=== PATIENT | male | born 1980 | race Caucasian/White ===

== ENCOUNTER 2017-01-20 17:19 | Inpatient (IN) ==
[2017-01-20] MEDS ORDERED: *HR* Morphine 2 MG/ML SYRINGE IVP PRN (19:33)
[2017-01-20] MEDS ORDERED: *HR* HYDROmorphone 2 MG/ML SYRINGE IM PRN (21:56)
--- NOTE | 2017-01-20 23:21 | Internal Med History&Physical ---
<Octavio Vela - Last Filed: 01/21/17 00:25> Date of Encounter: 01/21/17 Time of Encounter: 21:00 Assessment and Plan (1) Abdominal pain Current visit: Yes Status: Acute Patient has right upper quadrant abdominal pain, possibly due to biliary obstruction. -Pain unrelated to the consumption of food. -Surgery has been consulted. -NPO after midnight in preparation for procedure. -HIDA scan in the morning. -Dilaudid for pain control. Qualifiers: Qualified Code(s): R10.11 - Right upper quadrant pain (2) Pancreatitis Current visit: Yes Status: Acute Patient has a known history of pancreatitis. -Patient states that he has been treated previously treated with pancreatitis, and that he had an elevated lipase during these episodes. -Patient denies drinking alcohol for the last 3 months. -Patient does note however that his pain is somewhat different from when he had pancreatitis. -Surgical consult. -Nothing by mouth after midnight. HIDA scan in the morning. Dilaudid for pain control. Qualifiers: Qualified Code(s): K85.90 - Acute pancreatitis without necrosis or infection , unspecified (3) Back pain Current visit: Yes Status: Acute Patient states that he takes Lyrica for back pain secondary to an injury he received in combat. Qualifiers: Qualified Code(s): M54.9 - Dorsalgia, unspecified Internal Medicine - H&P: HPI History of present illness: Mr. Yañez is a 36 year old male with a past medical history of PTSD, pancreatitis, and hepatitis who was seen and examined at bedside this evening. Patient states that he has had increasing abdominal pain in his right upper quadrant over the last 3 months, although his pain has increased in severity over the last 3 weeks. This patient is a transfer from the [facility]. He states that this abdominal pain is sharp in quality, constant, nonradiating, rated 10/10. Nothing seems to make the pain better or worse. Patient had previously been treated with Dilaudid, although he notes that it was not very effective. Pain seems to be unrelated to the consumption of food. He denies ever having a pain like this before. Patient notes that over the last several days he has been treated for pancreatitis. His condition however, has not improved. Patient notes that he has had issues in the past with his pancreas, although he has never experienced pain like this before. He denies current use of alcohol; he states that he has not had any alcohol for the last 3 months. He currently denies fever, chills, nausea, vomiting, diarrhea, or changes in bowel habits. Past Med Surg Social Fam HX - Past Medical History Medical history: diabetes, GERD, hepatitis Psychiatric history: no psych history - Past Surgical History Surgical History: no surgical history - Social History Smoking Status: Never smoker Smokeless Tobacco Status: Yes Alcohol use: none Drug use: none - Family History Mother Living Status: Still Living Father Living Status: Still Living Internal Medicine - H&P: Meds 3 Allergy/AdvReac Type Severity Reaction Status Date / Time No Known Allergies Allergy Verified 01/19/17 11:13 All Systems PM: A 10-system review of systems was performed and is negative for pertinent findings except as documented above in the HPI. - Constitutional Constitutional: no anorexia, no chills, no fatigue, no weakness - Cardiovascular Cardiovascular ROS IM: no chest pain, no diaphoresis, no dyspnea, no lightheadedness, no palpitations, no syncope - Respiratory Respiratory: no cough, no dyspnea, no wheezing, no excessive phlegm production - Gastrointestinal Gastrointestinal: abdominal pain, change in bowel habits, no bloating, no coffee ground emesis, no diarrhea, no heartburn, no vomiting - Constitutional Vitals: Temp Pulse Resp BP Pulse Ox 98.4 F 97 14 131/92 98 01/20/17 19:30 01/20/17 19:30 01/20/17 19:30 01/20/17 19:30 01/20/17 19:30 - Head Head exam: Present: atraumatic, normocephalic - Neck Neck exam general surgery: Present: supple, trachea midline. Absent: lymphadenopathy - Respiratory Respiratory exam: Present: CTAB. Absent: accessory muscle use, rales, rhonchi, wheezes - Cardiovascular Cardiovascular exam: Present: RRR, +S1, +S2. Absent: diastolic murmur, gallop, rubs, systolic murmur - GI/Abdominal GI/Abdominal exam: Present: normal bowel sounds, soft, tenderness. Absent: distended, guarding Additional comments: Pain primarily located in the right upper quadrant. Patient also has some pain in the left upper quadrant. Pain is worse with palpation. - Extremities Exam Extremities exam: Present: warm, radial pulses palpable and symmetrical - Skin Skin exam: Present: dry, intact <Daysi Everett - Last Filed: 01/21/17 03:29> Date of Encounter: 01/21/17 Internal Medicine - H&P: HPI History of present illness: Mr. Yañez is a 36 year old male All Systems PM: A 10-system review of systems was performed and is negative for pertinent findings except as documented above in the HPI. - Constitutional Vitals: Temp Pulse Resp BP Pulse Ox 97.9 F 98 14 119/74 95 01/21/17 00:50 01/21/17 00:50 01/21/17 00:50 01/21/17 00:50 01/21/17 00:50 - Attending Attestation I have personally performed a face to face evaluation on this patient and I discussed the assessment and plan with the resident. I have reviewed and agree with the documented care plan. History and Exam by me shows: This is a 36 y/o M with known h/o narcotic dependence, drug seeking behavior, chronic pancreatitis, chronic Hep C who was admitted into the [facility] for intractable abdominal pain. He was there for almost 3 months, with no IV access and getting IM Dilaudid every 4hrs. Now he was sent over here for further evaluation regarding his RUQ abdominal pain. Gen: A, A, O x3 Chest: CTA, No Wheezing/ no crackles Abd: pt is exhibiting lot of pain in RUQ, but overall abdomen soft, no guarding / no rigidity Heart: S1 S2 + RRR, No murmurs a/p 1. Acute intractable RUQ abdominal pain Keep him NPO after mid night will get HIDA scan in AM Also will consult surgery in AM 2. Chronic pancreatitis will check LFT's and Lipase in AM 3. Chronic hep C f/u with PCP as an out pt
[2017-01-21] MEDS: Nicotine 2 MG GUM BC PRN ×4 (01:46→21:50)
[2017-01-21] MEDS: *HR* HYDROmorphone 4 MG TABLET PO PRN ×4 (01:47→23:08)
[2017-01-21] MEDS ORDERED: Ketorolac 15 MG/ML VIAL IM ONE (03:00)
[2017-01-21] MEDS ORDERED: *HR* Promethazine 25 MG/ML VIAL IM ONE (03:01)
[2017-01-21] MEDS ORDERED: *HR* HYDROmorphone 2 MG/ML SYRINGE IM ONE (03:25)
[2017-01-21 08:35] LABS: Basophils % 0.4 %; Eosinophils % 0.1 %; Hematocrit 42.3 % (37.5-50.1); Immature Granulocytes % 0.3 % (0-4); Lymphocytes # 2.1 K/mcL (0.6-4.6); Lymphocytes % 19.7 %; Mean Corpuscular HGB Conc 33.1 g/dL (31.6-35.5); Mean Corpuscular Hemoglobin 28.6 pg (28.0-33.3); Mean Corpuscular Volume 86.5 fL (83.0-100.0); Mean Platelet Volume 9.2 fL (9.4-12.4); Monocytes # 0.8 K/mcL (0.0-1.3); Monocytes % 7.4 %; Neutrophils # 7.7 K/mcL (1.6-8.9); Platelet Count 303 K/mcL (140-400); Red Blood Count 4.89 M/mcL (4.19-5.50); Red Cell Distribution Width 13.8 % (11.5-14.5); Segmented Neutrophils % 72.1 %
[2017-01-21 08:38] LABS: INR 1.2; Prothrombin Time 12.6 Seconds (9.4-12.1)
[2017-01-21 08:49] LABS: Alanine Aminotransferase 113 Units/L (0-55); Albumin 3.7 g/dL (3.5-5.0); Alkaline Phosphatase 84 Units/L (38-126); Aspartate Amino Transferase 144 Units/L (5-34); BUN/Creatinine Ratio 17 (6-26); Blood Urea Nitrogen 18 mg/dL (8-26); Calcium 9.3 mg/dL (8.6-10.8); Carbon Dioxide 26 mEq/L (19-29); Chloride 102 mEq/L (98-109); Globulin 3.7 g/dL (2.4-3.5); Glucose 121 mg/dL (70-99); Lipase 195 Units/L (8-78); Magnesium 2.1 mg/dL (1.6-2.6); Osmolality,Calculated 283 (280-300); Potassium 3.6 mEq/L (3.5-4.5); Sodium 135 mEq/L (136-145); Total Protein 7.4 g/dL (6.0-8.3); eGFR For African Americans > 60 (> 60); eGFR For Non-African Americans > 60 (> 60)
--- NOTE | 2017-01-21 09:12 | Internal Med Progress Note ---
<IanedithReyna florence - Last Filed: 01/21/17 16:00> Date of Encounter: 01/21/17 Time of Encounter: 09:12 - Assessment and plan (1) Abdominal pain Current Visit: Yes Status: Acute Assessment and plan: Patient with right upper quadrant pain. He has a nonacute exam. Patient has been drug-seeking during this admission. The examination needed to properly incompletely evaluate his gallbladder would be a HIDA scan. We have discussed this with patient and he agrees to the test. -Follow-up results of HIDA scan. -Follow surgery recommendations. Keep patient nothing by mouth while awaiting their recommendations. -Judicious pain control, and anti-emetics. Qualifiers: Abdominal location: right upper quadrant Qualified Code(s): R10.11 - Right upper quadrant pain (2) Pancreatitis Current Visit: Yes Status: Chronic Assessment and plan: Patient's lipase is 195. -Awaiting results of HIDA scan. Patient is recovering from an ERCP on Thursday, this elevation in enzymes could be secondary to examination. -Continue judicious pain control and Phenergan Qualifiers: Chronicity: chronic Pancreatitis type: unspecified pancreatitis type Qualified Code(s): K86.1 - Other chronic pancreatitis (3) Aggressive behavior Current Visit: Yes Status: Chronic - Subjective Interval history: Mr. Yañez is a 36-year-old male past medical history of diabetes mellitus, PTSD , chronic pancreatitis, hepatitis, and polysubstance abuse. Presents to [facility] on 01[facility]2017 as a transfer [facility] the [facility]. He was transferred for right upper quadrant pain. Prior to transfer, he had a CT scan and a gallbladder ultrasound which showed no abnormalities. His hospital course has been complicated by a aggressive behavior including inability to cooperate for the needed HIDA scan this morning. Patient was demanding pain medication. This morning, upon presentation to the room, patient was resting comfortably. Upon further questioning, patient stated he could not cooperate for the exam as he is in excruciating pain. He describes his pain as constant and located in the upper portions of his abdomen. He has not had a bowel movement recently, and teeth denies any melena or hematochezia. He denies any diarrhea, nausea, or vomiting. Denies any fevers or chills, headache, dizziness , chest pain, shortness of breath, or weakness. Patient has never had surgery. Upon review of the plan with the patient, she agreed that he would hold his pain medications until HIDA scan. - Constitutional Vitals: Temp Pulse Resp BP Pulse Ox 97.7 F 78 16 126/70 96 01/21/17 07:30 01/21/17 07:30 01/21/17 07:30 01/21/17 07:30 01/21/17 07:30 General appearance: Present: mild distress, A&O X 3, answers questions appropriately - Respiratory Respiratory exam: Present: CTAB. Absent: accessory muscle use, rales, rhonchi, wheezes - Cardiovascular Cardiovascular exam: Present: RRR, +S1, +S2. Absent: diastolic murmur, gallop, rubs, systolic murmur - GI/Abdominal GI/Abdominal exam: Present: soft, tenderness (Mild bilateral upper abdominal pain). Absent: distended, firm, guarding, pulsatile mass, rebound, no peritoneal signs - Extremities Exam Extremities exam: Present: warm, radial pulses palpable and symmetrical. Absent : calf tenderness, cyanotic, pedal edema - Psychiatric Psychiatric exam: Present: agitated Internal Medicine: Result - Labs CBC & Chem 7: 01/21/17 08:25 01/21/17 08:25 Labs: Short CBC 01/21/17 Range/Units 08:25 WBC 10.7 (4.3-11.1) K/mcL Hgb 14.0 (12.9-16.9) g/dL Hct 42.3 (37.5-50.1) % Plt Count 303 (140-400) K/mcL Neutrophils # 7.7 (1.6-8.9) K/mcL BMP 01/21/17 08:25 Sodium 135 L Potassium 3.6 Chloride 102 Carbon Dioxide 26 BUN 18 Creatinine 1.08 Glucose 121 H Calcium 9.3 Liver Function 01/21/17 Range/Units 08:25 Total Bilirubin 2.0 H (0.2-1.2) mg/dL AST 144 H (5-34) Units/L ALT 113 H (0-55) Units/L Alkaline Phosphatase 84 (38-126) Units/L Albumin 3.7 (3.5-5.0) g/dL - ABG Interpretation ABG results: PT/INR, D-dimer PT 12.6 Seconds (9.4-12.1) H 01/21/17 08:25 Consult Discharge Plan - Plan [facility] Provider[facility] - <Dru Buckner T - Last Filed: 01/21/17 16:25> Date of Encounter: 01/21/17 - Constitutional Vitals: Temp Pulse Resp BP Pulse Ox 97.8 F 104 15 144/96 99 01/21/17 15:39 01/21/17 15:39 01/21/17 15:39 01/21/17 15:39 01/21/17 15:39 Internal Medicine: Result - Labs CBC & Chem 7: 01/21/17 08:25 01/21/17 08:25 Labs: Short CBC 01/21/17 Range/Units 08:25 WBC 10.7 (4.3-11.1) K/mcL Hgb 14.0 (12.9-16.9) g/dL Hct 42.3 (37.5-50.1) % Plt Count 303 (140-400) K/mcL Neutrophils # 7.7 (1.6-8.9) K/mcL BMP 01/21/17 08:25 Sodium 135 L Potassium 3.6 Chloride 102 Carbon Dioxide 26 BUN 18 Creatinine 1.08 Glucose 121 H Calcium 9.3 Liver Function 01/21/17 Range/Units 08:25 Total Bilirubin 2.0 H (0.2-1.2) mg/dL AST 144 H (5-34) Units/L ALT 113 H (0-55) Units/L Alkaline Phosphatase 84 (38-126) Units/L Albumin 3.7 (3.5-5.0) g/dL - ABG Interpretation ABG results: PT/INR, D-dimer PT 12.6 Seconds (9.4-12.1) H 01/21/17 08:25 - Impressions Impressions Bile Acid Absorption NM 01/21/17 06:36 IMPRESSION: Nondiagnostic examination as described. RECOMMENDATIONS: Consider gallbladder ultrasound for further assessment as clinically warranted. D/ / Roque Mccloud MD / Roque Mccloud MD Interpreting Provider: Roque Mccloud MD - Attending Attestation I independently saw and examined this patient on 01/21/2017, I have reviewed his chart as well. Diagnoses and management plan was discussed with the patient, and the resident physician. This is a 36 YOM with hx of chronic pancreatitis, chronic hepatitis, recent treatment for Latent TB, hepatosteeasosis, hypothyroidism. Patient was admitted [facility] for abdominal pain. At the time of review, there is no acute reason for his acute abdomen. [facility] and [facility] here show his chronic hepatitis/pancreatitis. He had also refused to co-operative. For his HIDA scan. OARSS is unremarkable for history of drug abuse. [facility] Physical exam is unremarkable A/P: Abdominal pain: Surgery has signed off, limit use of opiates, clear liquid diet, monitor closely. Rpt LFTs a.m Rest of details as in resident physicians documentation
--- NOTE | 2017-01-21 11:16 | General Surgery Consult Note ---
Addendum entered and electronically signed by Lizz Waller CNP 01/21/17 15: 00: CT and Ultrasound results (per hard chart), which are not concerning for acute gall bladder process, reviewed with Dr. Mccormick. Pt was unable to complete Hida scan d/t "extreme back pain." No clear indication for surgical intervention at this time. surgery will sign off. Please reconsult if needs or concerns arise. Original Note: <Lizz Waller - Last Filed: 01/21/17 13:58> Date of Encounter: 01/21/17 Time of Encounter: 11:15 Assessment and Plan (1) Abdominal pain Current Visit: Yes Status: Acute His abdominal exam is nonacute. He does report tenderness with moderate palpation. Radiology results reviewed (see HPI). Patient has not had any IV pain medication or narcotics for greater than 6 hours. He does become aggressive when we discuss the Hida scan stating "change to this tomorrow I want pain medication because that is all that's helping and I am getting pissed. " Discussed further with patient that he is prepped for the exam today and this is the scan that surgery requires to properly evaluate his abdominal discomfort in light of his normal US and CT recently. Reviewed with patient that the same process would need to be followed tomorrow, and we do not recommend waiting for this exam. He does become slightly more aggressive, but does agree to complete Hida scan today. IF Hida is normal, the etiology of his abdominal discomfort is likely r/t chronic pancreatitis and/or chronic Hep C. Continue NPO at this time Further recommendations pending Hida scan The above plan presented by this CHIEF QUALITY OFFICER and Althea Nazario CNP,and is reviewed with the patient and he is agreeable to proceed. Qualifiers: Abdominal location: right upper quadrant Qualified Code(s): R10.11 - Right upper quadrant pain (2) Aggressive behavior Current Visit: Yes Status: Chronic See above. (3) Pancreatitis Current Visit: Yes Status: Chronic See above Lipase 195 Qualifiers: Chronicity: chronic Pancreatitis type: unspecified pancreatitis type Qualified Code(s): K86.1 - Other chronic pancreatitis History of Present Illness Consult date: 01/20/17 (Dr. Paul Mccormick) Reason for consult: abdominal pain Requesting physician: Octavio Vela History of present illness: Lawrence is a 36 year old male who presented for RUQ pain. Lawrence has a past medical history of chronic hepatitis C status post treatment with Harvoni , chronic pancreatitis, EtOH abuse, obstructive sleep apnea with intolerance to CPAP, hypothyroidism, PTSD, nicotine dependence, opiate abuse, and traumatic brain injury. He had been evaluated at the [place] and CT scan on 01/14/2017 indicated constipation and no mention of gall bladder abnormality, RUQ ultrasound on 01/15/2017 showed no gall bladder abnormality, and he was transferred to [facility]. An ERCP on 01/20/2017 (Dr. Chaudhry) was unremarkable. We have been asked to evaluate the patient for consideration gallbladder etiology. Lawrence reports history of right upper quadrant pain and epigastric pain for the last 4 months. He states that any intake by mouth makes this worse. He denies any alleviating factors other than pain medication. Per record review he had no IV access at the [place] and was receiving dilaudid injections every 4 hours. He reports constipation. He denies black, bloody, or tarry stool. He denies diarrhea. He endorses intermittent episodes of nausea that accompany the abdominal pain. He denies fevers or chills, headache, dizziness, chest pain , shortness of breath, or weakness. He denies a surgical history. He endorses a chewing tobacco history. His hospital course has included unremarkable CBC, BMP and LFTs consistent with chronic pancreatitis. Lawrence reports that he is getting "very angry," and want something "done now." Per bedside RN ILAN had been ordered by hospitalist, but patient refused unless he was given pain medication. Pain medication has been held for greater than 6 hours in preparation for the scan. Past Med Surg Social Fam HX - Past Medical History Source: patient, old records reviewed Medical history: diabetes, GERD, hepatitis, liver disease (Chronic hepatitis C; treated with Harvoni), other (TBI, ETOH abuse, ASHLEY, hypothyroid, ) Psychiatric history: anxiety, depression, PTSD, other - Past Surgical History Surgical History: no surgical history - Social History Smoking Status: Never smoker Smokeless Tobacco Status: Yes Alcohol use: none Drug use: none Occupational status: other Current living situation: Other Activity Level: Independent ambulation Recent Out of Country Travel Within the Last 8 Weeks: No Exposure or Possible Exposure to Illness During Travel: No - Family History Mother Living Status: Still Living Father Living Status: Still Living Medications and Allergies Acamprosate Calcium 666 mg PO TID 01/21/17 [History] Finasteride [Proscar] 5 mg PO DAILY 01/21/17 [History] Folic Acid 1 mg PO DAILY 01/21/17 [History] Ibuprofen [Motrin] 600 mg PO Q8H PRN 01/21/17 [History] Levothyroxine Sodium [Levoxyl] 37.5 mcg PO QAM 01/21/17 [History] Lipase/Protease/Amylase [Creon Dr 24,000 Units Capsule] 1 cap PO TIDWM 01/21/17 [History] Magnesium Oxide [Magnesium] 400 mg PO BID 01/21/17 [History] Mirtazapine [Remeron] 15 mg PO HS 01/21/17 [History] Multivit-Min/FA/Lycopen/Lutein [A Thru Z Select Multivit Tab] 1 tab PO DAILY 08/04 [History] Nicotine Polacrilex [Nicotine Lozenge] 4 mg BC Q2H PRN 01/21/17 [History] Omeprazole [PriLOSEC] 20 mg PO DAILY 01/21/17 [History] Potassium Chloride [K-Tab ER] 20 meq PO DAILY 01/21/17 [History] Thiamine (B-1) [Vitamin B-1] 100 mg PO DAILY 01/21/17 [History] hydrOXYzine HCl [Hydroxyzine HCl] 25 mg PO TID 01/21/17 [History] 3 Allergy/AdvReac Type Severity Reaction Status Date / Time No Known Allergies Allergy Verified 01/19/17 11:13 Review of Systems All systems PM: A 10-system review of systems was performed and is negative for pertinent findings except as documented above in the HPI. General Surgery Exam Initial Vital Signs Temp Pulse Resp BP Pulse Ox 98.4 F 97 14 131/92 98 01/20/17 19:30 01/20/17 19:30 01/20/17 19:30 01/20/17 19:30 01/20/17 19:30 - General physical appearance well developed, well nourished, no distress, other (agressive behavior ) - Eyes PERRL, normal ocular movement - ENT normal mucosa, atraumatic, normocephalic - Neck trachea midline - Respiratory normal expansion, normal respiratory effort, clear to percussion, clear to auscultation - Cardiovascular Cardiovascular exam: Present: RRR, 15, 16 - Abdomen Abdomen general surgery: Present: bowel sounds present, soft, tender Abdominal Tenderness: Present: RUQ, LUQ, diffusely Hernia: Present: none - Neurologic Present: CN 2-12 grossly intact, normal coordination, normal sensation - Musculoskeletal Present: normal gait, normal posture - Psychiatric Psychiatric general surgery: Present: A&Ox3, aggessive Exam Initial Vital Signs Temp Pulse Resp BP Pulse Ox 98.4 F 97 14 131/92 98 01/20/17 19:30 01/20/17 19:30 01/20/17 19:30 01/20/17 19:30 01/20/17 19:30 Results - Labs 01/21/17 08:25 01/21/17 08:25 Abnormal lab results MPV 9.2 fL (9.4-12.4) L 01/21/17 08:25 PT 12.6 Seconds (9.4-12.1) H 01/21/17 08:25 Sodium 135 mEq/L (136-145) L 01/21/17 08:25 Glucose 121 mg/dL (70-99) H 01/21/17 08:25 POC Glucose 157 (58-89) H 01/21/17 06:19 Total Bilirubin 2.0 mg/dL (0.2-1.2) H 01/21/17 08:25 AST 144 Units/L (5-34) H 01/21/17 08:25 ALT 113 Units/L (0-55) H 01/21/17 08:25 Globulin 3.7 g/dL (2.4-3.5) H 01/21/17 08:25 Albumin/Globulin Ratio 1.0 (1.1-2.2) L 01/21/17 08:25 Lipase 195 Units/L (8-78) H 01/21/17 08:25 Diabetes panel 01/21/17 Range/Units 08:25 Sodium 135 L (136-145) mEq/L Potassium 3.6 (3.5-4.5) mEq/L Chloride 102 (98-109) mEq/L Carbon Dioxide 26 (19-29) mEq/L BUN 18 (8-26) mg/dL Creatinine 1.08 (0.72-1.25) mg/dL Glucose 121 H (70-99) mg/dL Calcium 9.3 (8.6-10.8) mg/dL AST 144 H (5-34) Units/L ALT 113 H (0-55) Units/L Alkaline Phosphatase 84 (38-126) Units/L Albumin 3.7 (3.5-5.0) g/dL Calcium panel 01/21/17 Range/Units 08:25 Calcium 9.3 (8.6-10.8) mg/dL Albumin 3.7 (3.5-5.0) g/dL Pituitary panel 01/21/17 Range/Units 08:25 Sodium 135 L (136-145) mEq/L Potassium 3.6 (3.5-4.5) mEq/L Chloride 102 (98-109) mEq/L Carbon Dioxide 26 (19-29) mEq/L BUN 18 (8-26) mg/dL Creatinine 1.08 (0.72-1.25) mg/dL Glucose 121 H (70-99) mg/dL Calcium 9.3 (8.6-10.8) mg/dL Adrenal panel 01/21/17 Range/Units 08:25 Sodium 135 L (136-145) mEq/L Potassium 3.6 (3.5-4.5) mEq/L Chloride 102 (98-109) mEq/L Carbon Dioxide 26 (19-29) mEq/L BUN 18 (8-26) mg/dL Creatinine 1.08 (0.72-1.25) mg/dL Glucose 121 H (70-99) mg/dL Calcium 9.3 (8.6-10.8) mg/dL Total Bilirubin 2.0 H (0.2-1.2) mg/dL AST 144 H (5-34) Units/L ALT 113 H (0-55) Units/L Alkaline Phosphatase 84 (38-126) Units/L Albumin 3.7 (3.5-5.0) g/dL All other labs normal. - Imaging Additional studies: [facility] See [facility]PI Consult Discharge Plan - Plan [facility]Primary Care Provider[facility] - <Paul Mccormick - Last Filed: 01/21/17 17:58> Date of Encounter: 01/21/17 Assessment and Plan (1) Pancreatitis Current Visit: Yes Status: Chronic The patient is seen and evaluated. I initially evaluated CAT scan and ultrasound as well as hepatobiliary scan and discussed the patient with the clinical nurse practitioner. There were no clear surgical indications for cholecystectomy. It did not appear that the gallbladder was causing his pain syndrome. The patient has had 4 months of abdominal pain and presents for further workup. This afternoon I spent time talking with the patient and with his paediatric thoracic physician Dr. Holloway. It is true that the patient has no clear indications of acute cholecystitis or cholelithiasis. It is perplexing that the patient continues to have pain even though he is had ERCP. If the gallbladder was the cause been passing stones sludge or material from the gallbladder would cause temporary obstruction of the common bile duct and resulting symptoms. However, after ERCP the patient continues to have pain. The ultrasound and CAT scan did not demonstrate any sludge in the gallbladder. Dr. Holloway reported a small amount. At this point I do not believe that his gallbladder is the cause of his pain syndrome. After having this discussion, it is important to consider the possibility of the gallbladder causing intermittent damage with stone passage. Gastroenterology has recommended cholecystectomy just to remove the gallbladder from the list of possible causes of chronic relapsing pancreatitis. At time of laparoscopy laparoscopic liver biopsy can also be performed to assist in treatment decision making for his hepatitis. Based on these discussions I think it is reasonable to proceed with laparoscopic cholecystectomy and laparoscopic liver biopsy with cholangiogram to assess the sphincterotomy. This decision was made in conjunction with gastroenterology and with the patient. Qualifiers: Chronicity: chronic Pancreatitis type: unspecified pancreatitis type Qualified Code(s): K86.1 - Other chronic pancreatitis Review of Systems All systems PM: A 10-system review of systems was performed and is negative for pertinent findings except as documented above in the HPI. General Surgery Exam Initial Vital Signs Temp Pulse Resp BP Pulse Ox 98.4 F 97 14 131/92 98 01/20/17 19:30 01/20/17 19:30 01/20/17 19:30 01/20/17 19:30 01/20/17 19:30 Exam Initial Vital Signs Temp Pulse Resp BP Pulse Ox 98.4 F 97 14 131/92 98 01/20/17 19:30 01/20/17 19:30 01/20/17 19:30 01/20/17 19:30 01/20/17 19:30 Results - Labs 01/21/17 08:25 01/21/17 08:25 Abnormal lab results MPV 9.2 fL (9.4-12.4) L 01/21/17 08:25 PT 12.6 Seconds (9.4-12.1) H 01/21/17 08:25 Sodium 135 mEq/L (136-145) L 01/21/17 08:25 Glucose 121 mg/dL (70-99) H 01/21/17 08:25 POC Glucose 91 (58-89) H 01/21/17 11:39 Total Bilirubin 2.0 mg/dL (0.2-1.2) H 01/21/17 08:25 AST 144 Units/L (5-34) H 01/21/17 08:25 ALT 113 Units/L (0-55) H 01/21/17 08:25 Globulin 3.7 g/dL (2.4-3.5) H 01/21/17 08:25 Albumin/Globulin Ratio 1.0 (1.1-2.2) L 01/21/17 08:25 Lipase 195 Units/L (8-78) H 01/21/17 08:25 Diabetes panel 01/21/17 Range/Units 08:25 Sodium 135 L (136-145) mEq/L Potassium 3.6 (3.5-4.5) mEq/L Chloride 102 (98-109) mEq/L Carbon Dioxide 26 (19-29) mEq/L BUN 18 (8-26) mg/dL Creatinine 1.08 (0.72-1.25) mg/dL Glucose 121 H (70-99) mg/dL Calcium 9.3 (8.6-10.8) mg/dL AST 144 H (5-34) Units/L ALT 113 H (0-55) Units/L Alkaline Phosphatase 84 (38-126) Units/L Albumin 3.7 (3.5-5.0) g/dL Calcium panel 01/21/17 Range/Units 08:25 Calcium 9.3 (8.6-10.8) mg/dL Albumin 3.7 (3.5-5.0) g/dL Pituitary panel 01/21/17 Range/Units 08:25 Sodium 135 L (136-145) mEq/L Potassium 3.6 (3.5-4.5) mEq/L Chloride 102 (98-109) mEq/L Carbon Dioxide 26 (19-29) mEq/L BUN 18 (8-26) mg/dL Creatinine 1.08 (0.72-1.25) mg/dL Glucose 121 H (70-99) mg/dL Calcium 9.3 (8.6-10.8) mg/dL Adrenal panel 01/21/17 Range/Units 08:25 Sodium 135 L (136-145) mEq/L Potassium 3.6 (3.5-4.5) mEq/L Chloride 102 (98-109) mEq/L Carbon Dioxide 26 (19-29) mEq/L BUN 18 (8-26) mg/dL Creatinine 1.08 (0.72-1.25) mg/dL Glucose 121 H (70-99) mg/dL Calcium 9.3 (8.6-10.8) mg/dL Total Bilirubin 2.0 H (0.2-1.2) mg/dL AST 144 H (5-34) Units/L ALT 113 H (0-55) Units/L Alkaline Phosphatase 84 (38-126) Units/L Albumin 3.7 (3.5-5.0) g/dL All other labs normal.
[2017-01-21] MEDS ORDERED: *HR* HYDROmorphone 2 MG/ML SYRINGE IVP ONE (13:26)
[2017-01-21] MEDS ORDERED: NICOTINE POLACRILEX 4 MG BC PRN (15:03)
[2017-01-21] MEDS ORDERED: Ibuprofen 600 MG TABLET PO PRN (15:03)
[2017-01-21] MEDS: Thiamine (B-1) 100 MG TABLET PO SCH (15:56)
[2017-01-21] MEDS: *HR* Heparin 5,000 UNIT/ML VIAL SQ SCH (17:27)
[2017-01-21] MEDS ORDERED: *HR* HYDROmorphone 2 MG TABLET PO PRN (18:28)
[2017-01-21] MEDS ORDERED: Mirtazapine 15 MG TABLET PO SCH (21:00)
--- NOTE | 2017-01-22 00:57 | Event Note ---
Date of Encounter: 01/22/17 Time of Encounter: 00:50 Notified by nurse that patient has been very unpleasant all night and requesting IV Dilaudid because his oral dose is "ineffective" and not giving him IV Dilaudid is "unacceptable". Patient was made NPO after midnight by Dr. Mccormick and is scheduled for lap elysia, angiogram, and biopsy in the morning per surgery schedule. Will hold oral Dilaudid at this time due to NPO status and give one time dose of Dilaudid IM at currently scheduled 4 hour interval. Will defer further post op pain management to surgery. Patient understood, agreed to , and repeated the plan.
[2017-01-22] MEDS ORDERED: *HR* HYDROmorphone 2 MG/ML SYRINGE IM ONE (03:10)
[2017-01-22 04:19] LABS: Albumin 3.3 g/dL (3.5-5.0); Albumin/Globulin Ratio 0.9 (1.1-2.2); Bilirubin,Direct 0.9 mg/dL (0.0-0.5); Bilirubin,Indirect 0.4 mg/dL (0.0-1.2); Bilirubin,Total 1.3 mg/dL (0.2-1.2); Globulin 3.5 g/dL (2.4-3.5); Total Protein 6.8 g/dL (6.0-8.3)
[2017-01-22] MEDS: *HR* Heparin 5,000 UNIT/ML VIAL SQ SCH (06:04)
[2017-01-22] MEDS: Thiamine (B-1) 100 MG TABLET PO SCH (08:07)
[2017-01-22] MEDS: *HR* HYDROmorphone 4 MG TABLET PO PRN (08:44)
[2017-01-22] MEDS: Nicotine 2 MG GUM BC PRN ×3 (08:49→21:08)
[2017-01-22] MEDS ORDERED: Folic Acid 1 MG TABLET PO SCH (09:00)
[2017-01-22] MEDS ORDERED: Finasteride 5 MG TABLET PO SCH (09:00)
[2017-01-22] MEDS ORDERED: 0.9 % Sodium Chloride 1,000 ML IVC SCH (09:30)
--- NOTE | 2017-01-22 09:35 | Internal Med Progress Note ---
<IanlorenaWilnerReyna Leigha - Last Filed: 01/22/17 13:57> Date of Encounter: 01/22/17 Time of Encounter: 09:31 - Assessment and plan (1) Abdominal pain Current Visit: Yes Status: Acute Assessment and plan: Patient with right upper quadrant pain. He has a nonacute exam. Patient has been drug-seeking during this admission. The examination needed to properly incompletely evaluate his gallbladder would be a HIDA scan. Patient declined HIDA scanning twice yesterday. -Dr. Mccormick from surgery evaluated the patient he feels that his pain is due to chronic pancreatitis. He has agreed to take him to surgery for a cholecystectomy today. -Follow surgery recommendations. Keep patient nothing by mouth while awaiting surgery. -Judicious pain control, and anti-emetics. Qualifiers: Abdominal location: right upper quadrant Qualified Code(s): R10.11 - Right upper quadrant pain (2) Pancreatitis Current Visit: Yes Status: Chronic Assessment and plan: Judicious pain control and antiemetics Qualifiers: Chronicity: chronic Pancreatitis type: unspecified pancreatitis type Qualified Code(s): K86.1 - Other chronic pancreatitis (3) Aggressive behavior Current Visit: Yes Status: Chronic Assessment and plan: Patient has been uncooperative and demanding of narcotics. Patient has been walking around the hospital asking for Q-tips and in no apparent distress. (4) Drug-seeking behavior Current Visit: Yes Status: Acute Assessment and plan: Patient demanding about narcotic medication. He is requesting 2 milligram IV Dilaudid every 2 hours. Patient has been faxing paperwork and asking for Q- tips. - Subjective Interval history: Mr. Yañez is a 36-year-old male past medical history of diabetes mellitus, PTSD , chronic pancreatitis, hepatitis, and polysubstance abuse. Presents to [facility] on 01/20/2017 as a transfer from the [place]. He was transferred for right upper quadrant pain. Prior to transfer, he had a CT scan and a gallbladder ultrasound which showed no abnormalities. His hospital course has been complicated by a aggressive behavior including inability to cooperate for the needed HIDA scan this morning. Patient was demanding pain medication. This morning, upon presentation to the room, patient was resting comfortably. Upon further questioning, patient stated he could not cooperate for the exam as he is in excruciating pain. He describes his pain as constant and located in the upper portions of his abdomen. He has not had a bowel movement recently, and denies any melena or hematochezia. He denies any diarrhea, nausea, or vomiting. Denies any fevers or chills, headache, dizziness , chest pain, shortness of breath, or weakness. Patient is scheduled for surgery with Dr. Mccormick today for cholecystectomy. Patient has expressed concern that he is not giving his pain medication on a regular basis. Patient was walking around the [place] or the hospital many times today. - Constitutional Vitals: Temp Pulse Resp BP Pulse Ox 97.8 F 73 14 107/70 95 01/22/17 07:00 01/22/17 07:00 01/22/17 07:00 01/22/17 07:00 01/22/17 07:00 General appearance: Present: A&O X 3, answers questions appropriately - Respiratory Respiratory exam: Present: CTAB. Absent: accessory muscle use, rales, rhonchi, wheezes - Cardiovascular Cardiovascular exam: Present: RRR, +S1, +S2. Absent: diastolic murmur, gallop, rubs, systolic murmur - GI/Abdominal GI/Abdominal exam: Present: normal bowel sounds, soft, tenderness (mild diffuse RUQ pain), no peritoneal signs. Absent: distended - Extremities Exam Extremities exam: Present: warm, radial pulses palpable and symmetrical. Absent : calf tenderness, cyanotic, pedal edema Internal Medicine: Result - Labs CBC & Chem 7: 01/21/17 08:25 01/21/17 08:25 Labs: Liver Function 01/22/17 Range/Units 03:20 Total Bilirubin 1.3 H (0.2-1.2) mg/dL Direct Bilirubin 0.9 H (0.0-0.5) mg/dL AST 140 H (5-34) Units/L ALT 169 H (0-55) Units/L Alkaline Phosphatase 94 (38-126) Units/L Albumin 3.3 L (3.5-5.0) g/dL - ABG Interpretation ABG results: PT/INR, D-dimer PT 12.6 Seconds (9.4-12.1) H 01/21/17 08:25 - Impressions Impressions Bile Acid Absorption NM 01/21/17 06:36 IMPRESSION: Nondiagnostic examination as described. RECOMMENDATIONS: Consider gallbladder ultrasound for further assessment as clinically warranted. D/ / Roque Mccloud MD / Roque Mccloud MD Interpreting Provider: Roque Mccloud MD Consult Discharge Plan - Plan [facility]Primary Care Provider[facility] - <Dru Buckner T - Last Filed: 01/22/17 16:17> Date of Encounter: 01/22/17 - Constitutional Vitals: Temp Pulse Resp BP Pulse Ox 98.2 F 81 16 132/91 97 01/22/17 10:44 01/22/17 10:44 01/22/17 10:44 01/22/17 10:44 01/22/17 10:44 Internal Medicine: Result - Labs CBC & Chem 7: 01/22/17 14:20 01/22/17 14:20 Labs: Short CBC 01/22/17 Range/Units 14:20 WBC 6.4 (4.3-11.1) K/mcL Hgb 14.1 (12.9-16.9) g/dL Hct 42.1 (37.5-50.1) % Plt Count 251 (140-400) K/mcL Neutrophils # 3.8 (1.6-8.9) K/mcL BMP 01/22/17 14:20 Sodium 140 Potassium 3.9 Chloride 106 Carbon Dioxide 23 BUN 15 Creatinine 0.97 Glucose 84 Calcium 9.0 Liver Function 01/22/17 Range/Units 03:20 Total Bilirubin 1.3 H (0.2-1.2) mg/dL Direct Bilirubin 0.9 H (0.0-0.5) mg/dL AST 140 H (5-34) Units/L ALT 169 H (0-55) Units/L Alkaline Phosphatase 94 (38-126) Units/L Albumin 3.3 L (3.5-5.0) g/dL - ABG Interpretation ABG results: PT/INR, D-dimer PT 12.6 Seconds (9.4-12.1) H 01/21/17 08:25 - Attending Attestation I independently saw and examined this patient on 01/22/2017, I have reviewed his chart as well. Diagnoses and management plan was discussed with the patient, and the resident physician. This is a 36 YOM with hx of chronic pancreatitis, chronic hepatitis, recent treatment for Latent TB, hepatosteeasosis, hypothyroidism. [facility]. He is ambulatory and his description of abdominal pain does not match his physical exam which is unremarkable Surgery is planned for today Physical exam is unremarkable Labs with chronic hepatitis, AST/ALT at baseline from yesterdays A/P: Abdominal pain: Acute on chronic cholecystitis-For surgery today Hyothryoidism/Chronic pancreatitis/PTSD: Continue home meds Rest of details as in resident physicians documentation
[2017-01-22] MEDS ORDERED: *HR* HYDROmorphone 2 MG/ML SYRINGE IVP PRN (09:36)
[2017-01-22] MEDS ORDERED: Nicotine 14 MG PATCH.TD24 TD SCH (09:45)
[2017-01-22] MEDS: Ketorolac 15 MG/ML VIAL IVP SCH ×2 (09:57→11:44)
[2017-01-22] MEDS: *HR* HYDROmorphone (PF) 1 MG/ML SYRINGE IVP PRN ×9 (11:47→22:29)
[2017-01-22] MEDS ORDERED: *HR* HYDROmorphone (PF) 1 MG/ML SYRINGE IVP PRN (12:00)
[2017-01-22 14:47] LABS: Basophils % 0.5 %; Eosinophils # 0.1 K/mcL (0.0-0.6); Eosinophils % 0.9 %; Hematocrit 42.1 % (37.5-50.1); Hemoglobin 14.1 g/dL (12.9-16.9); Immature Granulocytes % 0.2 % (0-4); Lymphocytes % 31.4 %; Mean Corpuscular HGB Conc 33.5 g/dL (31.6-35.5); Mean Corpuscular Hemoglobin 29.1 pg (28.0-33.3); Mean Platelet Volume 9.5 fL (9.4-12.4); Monocytes # 0.4 K/mcL (0.0-1.3); Monocytes % 6.8 %; Neutrophils # 3.8 K/mcL (1.6-8.9); Platelet Count 251 K/mcL (140-400); Red Blood Count 4.84 M/mcL (4.19-5.50); Red Cell Distribution Width 13.8 % (11.5-14.5); Segmented Neutrophils % 60.2 %
[2017-01-22 15:03] LABS: BUN/Creatinine Ratio 15 (6-26); Blood Urea Nitrogen 15 mg/dL (8-26); Carbon Dioxide 23 mEq/L (19-29); Chloride 106 mEq/L (98-109); Glucose 84 mg/dL (70-99); Osmolality,Calculated 290 (280-300); Potassium 3.9 mEq/L (3.5-4.5); Sodium 140 mEq/L (136-145); eGFR For African Americans > 60 (> 60); eGFR For Non-African Americans > 60 (> 60)
[2017-01-22] MEDS ORDERED: *HR* FentaNYL (PF) 100 MCG/2 ML VIAL ONE (15:08)
[2017-01-22] MEDS ORDERED: *HR* Midazolam HCl 2 MG/2 ML VIAL ONE (15:08)
[2017-01-22] MEDS ORDERED: Lidocaine -MPF 2% 2 ML VIAL ONE (15:09)
[2017-01-22] MEDS ORDERED: *HR* Propofol 200 MG/20 ML VIAL IVP ONE (15:09)
[2017-01-22] MEDS ORDERED: *HR* Succinylcholine 200 MG/10 ML VIAL IVP ONE (15:09)
[2017-01-22] MEDS ORDERED: *HR* Rocuronium Bromide 50 MG/5 ML VIAL ONE (15:09)
--- NOTE | 2017-01-22 15:35 | Anesthesia Evaluation PreOp ---
Date of Encounter: 01/22/17 Time of Encounter: 15:33 - Past History Planned Operation: Lap elysia, liver biopsy Cardiac History: Denies any Significant Hx Pulmonary History: ASHLEY Dx (cannot tolerate CPAP) [employer] History: Other (hx TBI, spinal cord injury) Other Medical History: Hepatic (Hep C), Diabetes Type II (diet controlled), Other (hx recurrent pancreatitis) Anesthesia History: No Prior Anesthetic Complications Alcohol Use: none Drug use: none Medications and Allergies Acamprosate Calcium 666 mg PO TID 01/21/17 [History] Finasteride [Proscar] 5 mg PO DAILY 01/21/17 [History] Folic Acid 1 mg PO DAILY 01/21/17 [History] Ibuprofen [Motrin] 600 mg PO Q8H PRN 01/21/17 [History] Levothyroxine Sodium [Levoxyl] 37.5 mcg PO QAM 01/21/17 [History] Lipase/Protease/Amylase [Creon Dr 24,000 Units Capsule] 1 cap PO TIDWM 01/21/17 [History] Magnesium Oxide [Magnesium] 400 mg PO BID 01/21/17 [History] Mirtazapine [Remeron] 15 mg PO HS 01/21/17 [History] Multivit-Min/FA/Lycopen/Lutein [A Thru Z Select Multivit Tab] 1 tab PO DAILY 08/04 [History] Nicotine Polacrilex [Nicotine Lozenge] 4 mg BC Q2H PRN 01/21/17 [History] Omeprazole [PriLOSEC] 20 mg PO DAILY 01/21/17 [History] Potassium Chloride [K-Tab ER] 20 meq PO DAILY 01/21/17 [History] Thiamine (B-1) [Vitamin B-1] 100 mg PO DAILY 01/21/17 [History] hydrOXYzine HCl [Hydroxyzine HCl] 25 mg PO TID 01/21/17 [History] 3 Allergy/AdvReac Type Severity Reaction Status Date / Time No Known Allergies Allergy Verified 01/19/17 11:13 - Meds/Allergy Pre-op Review Medications Reviewed: Yes Allergies Reviewed: Yes Beta Blockers on Current Med List: No Anesthesia Results - Labs 01/22/17 14:20 01/22/17 14:20 Anesthesia Exam Last Vital Signs Temp 98.2 F 01/22/17 10:44 Pulse 81 01/22/17 10:44 Resp 16 01/22/17 10:44 BP 132/91 01/22/17 10:44 Pulse Ox 97 01/22/17 10:44 Weight: 107 kg NPO (# of Hours): >> 8 hrs - HEENT Pupil (Motor): Pupils equal, EOMI Mallampati: III Teeth: Normal Oral Opening: Greater than 3 - [employer] LOC: Oriented [employer] Motor: Normal RUE, Normal LUE, Normal RLE, Normal LLE, Normal Face - Cardiac Rhythm: Regular Murmur: None - Pulmonary Breath Sounds: bilateral Clear Respiratory Effort: Symmetrical Anesthesia Assess/Plan ASA Score: 3 Modified [place] Scale for Level of Consciousness: Cooperative, oriented, and tranquil Anesthetic Plan: General Monitoring Plan: Standard Monitors Recovery Plan: PACU
[2017-01-22] MEDS ORDERED: Lidocaine -MPF 4% 5 ML AMPUL ONE (15:42)
[2017-01-22] MEDS ORDERED: Ketamine *HR* 500 MG/10 ML MDV ONE (15:55)
[2017-01-22] MEDS ORDERED: Dexamethasone 4 MG/ML VIAL ONE (15:58)
[2017-01-22] MEDS ORDERED: Ondansetron 4 MG/2 ML VIAL ONE (15:58)
[2017-01-22] MEDS ORDERED: *HR* Magnesium Sulfate 1 GM/2 ML VIAL ONE (15:59)
[2017-01-22] MEDS ORDERED: CefOXitin 2,000 MG VIAL IVPB ONE (16:00)
[2017-01-22] MEDS ORDERED: Ketorolac 30 MG/ML VIAL ONE (16:03)
[2017-01-22] MEDS ORDERED: *HR* Labetalol 20 MG/4 ML SYRINGE IVP PRN (16:13)
[2017-01-22] MEDS ORDERED: *HR* Promethazine 25 MG/ML VIAL IVP PRN (16:13)
[2017-01-22] MEDS ORDERED: Neostigmine Methylsulfate 3 MG/3 ML SYRINGE ONE (16:31)
[2017-01-22] MEDS ORDERED: *HR* HYDROmorphone 2 MG/ML SYRINGE ONE (16:33)
--- NOTE | 2017-01-22 16:44 | Operative Note ---
Date of procedure: 01/22/17 Pre-op diagnosis: Chronic relapsing pancreatitis, hepatitis Post-op diagnosis: same Procedure: Laparoscopic cholecystectomy, cholangiogram, laparoscopic liver biopsy Anesthesia: NURIS Surgeon: Paul Mccormick Estimated blood loss (cc): 25 Specimen: #1 gallbladder and contents #2 liver biopsy Condition: stable Disposition: PACU Procedure in Detail: Laparoscopic cholecystectomy and intraoperative cholangiogram. Laparoscopic liver biopsy Operative procedure after informed consent and appropriate patient identification and timeout the patient was taken to the major operating suite and placed supine position given adequate general endotracheal anesthesia the abdomen is prepped and draped in sterile fashion utilizing ChloraPrep standard draping techniques timeout was taken patient is identified. I made a vertical midline incision below the umbilicus dissected down to level of fascia there are 2 traction stitches placed in the abdominal cavity was entered visually. A Lance trocar was placed in the abdomen and the abdomen was insufflated to 15 mmHg pressure CO2 the gallbladder was visualized. A placement 11 port in the subxiphoid area and 2 5 mm ports in the subcostal area. The gallbladder had some pericholecystic edema in the tissues around the neck the gallbladder. The remainder the gallbladder appeared to be thin walled and normal. Findings were consistent with localized inflammation from pancreatitis. The gallbladder was grasped and elevated. A variety of blunt and sharp dissection techniques were used to isolate the cystic duct and cystic artery. The cystic artery was controlled with 2 surgical clips proximally and one distally and it was divided I placed a surgical clip on the neck the gallbladder and obtained an intraoperative cholangiogram using 10 mL of Isovue. Intraoperative cholangiogram was normal. The cholangiocatheter was removed and the cystic duct was controlled with 2 surgical clips proximally and was divided the gallbladder was removed from the gallbladder fossae using electrocautery. The gallbladder was removed through the #11 port site using a specimen bag. I replaced the #11 port and irrigated with copious amounts of antibiotic containing solution. The laparoscopic liver needle biopsy device was brought onto the field. This was introduced visually into the right lobe of the liver. 3 core liver biopsies were obtained. Electrocautery was used on Sherley's capsule. Hemostasis was complete. Gross findings on the liver were consistent with hepatitis with neovascularity and micronodular appearance There is no evidence of bleeding or bile leak. All trochars were removed. Fascia was closed with 0 Vicryl skin with 2 0 and 4-0 Vicryl he tolerated the procedure well and was transferred to recovery in stable condition. photographic documentation was taken
--- NOTE | 2017-01-22 17:49 | Anesthesia Evaluation Post Op ---
Date of Encounter: 01/22/17 Time of Encounter: 17:48 - Vital Signs Vital Signs: Last Vital Signs Temp 97.8 F 01/22/17 17:40 Pulse 74 01/22/17 17:40 Resp 12 01/22/17 17:40 BP 125/93 01/22/17 17:40 Pulse Ox 97 01/22/17 17:40 - Lungs Lungs: Clear Ascult./Percussion - Airway Airway: Non-obstructed - Cardiovascular Regular Rate - Mental Status Mental Status: Alert & Oriented, Answers Appropriately - Pain Pain Scale: 4 - Nausea Vomiting Nausea Vomiting: Not Present - Hydration Hydration: Ice chips - Discharge PostOp Status: Transfer Patient to floor
[2017-01-22] MEDS ORDERED: Ibuprofen 600 MG TABLET PO PRN (18:02)
[2017-01-22] MEDS: 0.9 % Sodium Chloride 1,000 ML IVC SCH (18:19)
[2017-01-22] MEDS ORDERED: Mirtazapine 15 MG TABLET PO SCH (21:00)
[2017-01-23] MEDS: Ketorolac 15 MG/ML VIAL IVP SCH ×2 (00:19→05:31)
[2017-01-23] MEDS: Nicotine 2 MG GUM BC PRN ×4 (00:20→09:25)
[2017-01-23] MEDS: *HR* HYDROmorphone (PF) 1 MG/ML SYRINGE IVP PRN ×3 (00:20→05:32)
[2017-01-23] MEDS: 0.9 % Sodium Chloride 1,000 ML IVC SCH (04:04)
[2017-01-23] MEDS ORDERED: *HR* Heparin 5,000 UNIT/ML VIAL SQ SCH (06:00)
[2017-01-23 06:20] LABS: Hematocrit 39.9 % (37.5-50.1); Hemoglobin 13.4 g/dL (12.9-16.9); Immature Granulocytes % 0.4 % (0-4); Lymphocytes # 0.8 K/mcL (0.6-4.6); Lymphocytes % 7.3 %; Mean Corpuscular HGB Conc 33.6 g/dL (31.6-35.5); Mean Corpuscular Hemoglobin 28.8 pg (28.0-33.3); Mean Corpuscular Volume 85.8 fL (83.0-100.0); Mean Platelet Volume 9.6 fL (9.4-12.4); Monocytes # 0.4 K/mcL (0.0-1.3); Monocytes % 4.1 %; Platelet Count 255 K/mcL (140-400); Red Blood Count 4.65 M/mcL (4.19-5.50); Segmented Neutrophils % 88.2 %
[2017-01-23 06:22] LABS: Neutrophils # 9.3 K/mcL (1.6-8.9)
[2017-01-23 06:42] VITALS: BP 119/73
[2017-01-23 06:55] LABS: Alanine Aminotransferase 158 Units/L (0-55); Albumin 3.2 g/dL (3.5-5.0); Albumin/Globulin Ratio 0.9 (1.1-2.2); Alkaline Phosphatase 94 Units/L (38-126); Amylase 33 Units/L (25-125); Aspartate Amino Transferase 90 Units/L (5-34); BUN/Creatinine Ratio 13 (6-26); Bilirubin,Direct 0.4 mg/dL (0.0-0.5); Bilirubin,Indirect 0.4 mg/dL (0.0-1.2); Bilirubin,Total 0.8 mg/dL (0.2-1.2); Blood Urea Nitrogen 11 mg/dL (8-26); Calcium 8.7 mg/dL (8.6-10.8); Carbon Dioxide 21 mEq/L (19-29); Chloride 107 mEq/L (98-109); Globulin 3.7 g/dL (2.4-3.5); Glucose 219 mg/dL (70-99); Lipase 73 Units/L (8-78); Osmolality,Calculated 288 (280-300); Potassium 4.7 mEq/L (3.5-4.5); Sodium 136 mEq/L (136-145); Total Protein 6.9 g/dL (6.0-8.3); eGFR For African Americans > 60 (> 60); eGFR For Non-African Americans > 60 (> 60)
[2017-01-23] MEDS ORDERED: *HR* OxyCODONE/APAP 7.5/325 TABLET PO PRN (08:41)
[2017-01-23] MEDS ORDERED: Finasteride 5 MG TABLET PO SCH (09:00)
[2017-01-23] MEDS ORDERED: Folic Acid 1 MG TABLET PO SCH (09:00)
[2017-01-23] MEDS ORDERED: Nicotine 14 MG PATCH.TD24 TD SCH (09:00)
[2017-01-23] MEDS ORDERED: Thiamine (B-1) 100 MG TABLET PO SCH (09:00)
--- NOTE | 2017-01-23 09:30 | Discharge Summary ---
<Reyna Burr H - Last Filed: 01/23/17 13:17> Date of Encounter: 01/23/17 Time of Encounter: 09:25 - Discharge Diagnosis (1) Abdominal pain Priority: Primary Status: Acute Qualifiers: Abdominal location: right upper quadrant Qualified Code(s): R10.11 - Right upper quadrant pain (2) Pancreatitis Priority: Secondary Status: Chronic Qualifiers: Chronicity: chronic Pancreatitis type: unspecified pancreatitis type Qualified Code(s): K86.1 - Other chronic pancreatitis (3) Aggressive behavior Priority: Secondary Status: Chronic (4) Drug-seeking behavior Priority: Secondary Status: Acute (5) Biliary colic symptom Priority: Secondary Status: Acute (6) Hepatitis Priority: Secondary Status: Chronic - Discharge Medications Prescriptions: Oxycodone HCl [Oxaydo] 7.5 mg PO Q4H PRN #12 tablet.orl PRN Reason: Severe Pain Home Medications: Acamprosate Calcium 666 mg PO TID 01/21/17 [History] Finasteride [Proscar] 5 mg PO DAILY 01/21/17 [History] Folic Acid 1 mg PO DAILY 01/21/17 [History] Ibuprofen [Motrin] 600 mg PO Q8H PRN 01/21/17 [History] Levothyroxine Sodium [Levoxyl] 37.5 mcg PO QAM 01/21/17 [History] Lipase/Protease/Amylase [Creon Dr 24,000 Units Capsule] 1 cap PO TIDWM 01/21/17 [History] Magnesium Oxide [Magnesium] 400 mg PO BID 01/21/17 [History] Mirtazapine [Remeron] 15 mg PO HS 01/21/17 [History] Multivit-Min/FA/Lycopen/Lutein [A Thru Z Select Multivit Tab] 1 tab PO DAILY 08/04 [History] Nicotine Polacrilex [Nicotine Lozenge] 4 mg BC Q2H PRN 01/21/17 [History] Omeprazole [PriLOSEC] 20 mg PO DAILY 01/21/17 [History] Potassium Chloride [K-Tab ER] 20 meq PO DAILY 01/21/17 [History] Thiamine (B-1) [Vitamin B-1] 100 mg PO DAILY 01/21/17 [History] hydrOXYzine HCl [Hydroxyzine HCl] 25 mg PO TID 01/21/17 [History] Oxycodone HCl [Oxaydo] 7.5 mg PO Q4H PRN #12 tablet.orl 01/23/17 [Rx] Allergies/Adverse Reactions: 3 Allergy/AdvReac Type Severity Reaction Status Date / Time No Known Allergies Allergy Verified 01/19/17 11:13 Procedures/tests Complete & Pending: Procedures Performed prior 72 hours Category Date Time Status NM hepatobiliary [NM] Stat Exams 01/21/17 06:36 Completed Date of admission: 01/20/17 19:22 Primary care physician: [facility]CP [facility] Consults: 01/20/17 23:08 Consult to Surgery [CONS] Routine Consulting Provider: [facility] Reason for Consult: Abdominal pain Call Completed: No 01/21/17 09:18 Consult to [facility] [CONS] Routine Reason for SW Consult: [facility] - Patient Status Disposition: Transfer LTC Condition: Good Functional capacity at discharge: independent ambulation Overall status at discharge: patient is progressing back to baseline - Discharge Instructions Follow Up With: Paul Mccormick MD [Partnered Physician] - 02/03/17 10:20 am Additional Instructions: Please follow-up with your primary care provider at the [facility] in the next 1-2 weeks. Please follow-up with surgery regarding your liver biopsy. - Diet and Activity Activity: increase activity as tolerated Diet: advance to your usual diet Hospital course: Mr. Yañez is a 36 year old male past medical history of polysubstance abuse, PTSD, diabetes mellitus, and hepatitis C and chronic pancreatitis. He presented to the hospital on 01/20/2017 as a transfer from the [facility] due to intractable right upper quadrant pain. Patient's workup with CT scan and right upper quadrant ultrasound showed no abnormalities. Patient was found to have transaminitis as well as elevation in lipase. Upon admission to the hospital, surgery was consult to. HIDA scan was ordered which patient was noncompliant for twice as he stated he could not be without pain medication for that long. During the hospitalization, patient was found to be aggressive with many of his healthcare providers and auxiliary staff regarding the amount of narcotic pain medication he was receiving. Dr. Santos with surgery decided to take the patient to surgery for a prophylactic cholecystectomy to rule out his pancreatitis being the result of gallbladder obstruction or inflammation. During surgery, the patient was found to have a small amount of inflammation around the neck of his gallbladder. Postoperatively, the patient said his pain had resolved and it was now different. This morning, patient was resting comfortably with no evidence of any hemodynamic instability, abdominal pain or tenderness, respiratory or cardiovascular abnormalities. Patient was discharged back to the [facility]. We spoke to the admitting hospitalist who expressed concern about the patient's ability to follow up with his liver biopsy results. We have made note to at the liver [facility] as well as the patient's primary care provider. All questions were answered, and the patient was comfortable with the plan for discharge. - Time Spent with Patient Total time spent providing and/or coordinating discharge services: Greater than 30 minutes (40 minutes) - Constitutional Vitals: Temp Pulse Resp BP Pulse Ox 97.4 F L 78 15 119/73 96 01/23/17 06:40 01/23/17 06:40 01/23/17 06:40 01/23/17 06:40 01/23/17 06:40 General appearance: Present: A&O X 3, no acute distress, answers questions appropriately - Respiratory Respiratory exam: Present: CTAB. Absent: accessory muscle use, rales, rhonchi, wheezes - Cardiovascular Cardiovascular exam: Present: RRR, +S1, +S2. Absent: diastolic murmur, gallop, rubs, systolic murmur - GI/Abdominal GI/Abdominal exam: Present: normal bowel sounds, soft, no peritoneal signs. Absent: distended, tenderness - Extremities Exam Extremities exam: Present: warm, radial pulses palpable and symmetrical. Absent : calf tenderness, cyanotic, pedal edema - VTE Documentation of Mechanical Device: Intermittent pneumatic compression device <Dru Buckner - Last Filed: 01/23/17 14:15> Date of Encounter: 01/23/17 Procedures/tests Complete & Pending: Procedures Performed prior 72 hours Category Date Time Status NM hepatobiliary [NM] Stat Exams 01/21/17 06:36 Completed Date of admission: 01/20/17 19:22 Primary care physician: [facility] Consults: 01/20/17 23:08 Consult to Surgery [CONS] Routine Consulting Provider: [facility] Reason for Consult: Abdominal pain Call Completed: No 01/21/17 09:18 Consult to [facility] [CONS] Routine Reason for SW Consult: discharge planning with [facility] Hospital course: Mr. Yañez is a 36 year old male - Time Spent with Patient Total time spent providing and/or coordinating discharge services: - Constitutional Vitals: Temp Pulse Resp BP Pulse Ox 97.4 F L 78 15 119/73 96 01/23/17 06:40 01/23/17 06:40 01/23/17 06:40 01/23/17 06:40 01/23/17 06:40 - Attending Attestation I independently saw and examined this patient on 01/23/2017, I have reviewed his chart as well. Diagnoses and management plan was discussed with the patient, and the resident physician. This is a 36 YOM with hx of chronic pancreatitis, chronic hepatitis, recent treatment for Latent TB, hepatosteeasosis, hypothyroidism. POD 1 No new complains Sleeping soundly and sates "does not want to be disturbed" Physical exam is unremarkable Labs are stable Discharge back to [facility] Rest of details as in resident physicians documentation
--- NOTE | 2017-01-23 11:25 | General Surgery Progress Note ---
<Doris Krause - Last Filed: 01/23/17 11:22> Date of Encounter: 01/23/17 Time of Encounter: 09:30 - Assessment and Plan (1) Biliary colic symptom Status: Acute s/p cholecystectomy and liver biopsy on 01/22/17 2/2 biliary colic symptoms. Patient says his pain is now different and previous pain has resolved. Patient given oxycodone 7.5mg tablets PO Q4hrs for pain for d/c per primary team. From a surgical perspective patient is clear to be discharged back to the [facility] as he is recovering well. (2) Hepatitis Status: Chronic Hx of hepatitis and current transaminitis. (3) Pancreatitis Status: Chronic Elevated Lipase. Possibly 2/2 to gallbladder hence prophylaxis cholecystectomy as this should help from recurrence if caused by gallstones that keep passing as pancreatitis has no other etiology. Patient's pain has resolved, so gallbladder must have been causing the pain more than the pancreatitis. Qualifiers: Chronicity: chronic Pancreatitis type: unspecified pancreatitis type Qualified Code(s): K86.1 - Other chronic pancreatitis Subjective Narrative: Patient is a 36-year-old male past medical history of hepatitis, recurrent pancreatitis, and polysubstance abuse who underwent a cholecystectomy and liver biopsy on 01/22/17. Today patient is doing well. Patient states that his previous pain has improved and is now having a different pain from the incisions. Objective Vital Signs - Last 8 Hours Temp Pulse Resp BP Pulse Ox 01/23/17 06:40 97.4 F L 78 15 119/73 96 01/23/17 04:36 97.7 F 88 14 120/71 95 Intake and Output 01/22/17 01/23/17 01/23/17 23:59 07:59 15:59 Intake Total 520 / 520 1000 / 1000 Output Total 770 / 770 1000 / 1000 Balance -250 / -250 0 / 0 Intake: IV Fluids 400 / 400 1000 / 1000 0.9 % Sodium Chloride 1,000 ML 400 / 400 1000 / 1000 @ 100 mls/hr IVC .Q10H [facility] Rx#: [id number] Oral 120 / 120 0 / 0 Output: Urine 750 / 750 1000 / 1000 Estimated Blood Loss 20 / 20 Other: Meal Dinner Percent of Meal Consumed 80% Blood Glucose* 88 - Additional Exam Constitutional: Alert, in no acute distress, well nourished, well developed. Head: Normocephalic, atraumatic, normal contour and symmetric, no masses, lesions or scars Heart: Normal, regular rate and rhythm, no murmurs Lungs: Clear to auscultation, no wheezes, rales, or rhonchi Abdomen: diffuse abdominal tenderness, laproscopic incisions healing well without signs of infection and are well approximated, Soft, nondistended, and no masses palpable, bowel sounds present and normal, no guarding or rigidity. Extremities: No clubbing, cyanosis, or edema, radial pulse +2/4, capillary refill <2sec. Skin: tattoos on upper chest and arms, Skin warm and dry, no lesions, no rashes , no jaundice Neurologic: Cranial nerves II through XII grossly intact, no focal deficits, strength within normal limits in all extremities Psych: Cooperative with exam, good eye contact, cognitive function intact, judgment good insight good, speech clear, thought process logical, and goal directed - Labs 01/23/17 05:53 01/23/17 05:53 Diabetes panel 01/22/17 01/23/17 Range/Units 14:20 05:53 Sodium 140 136 (136-145) mEq/L Potassium 3.9 4.7 H (3.5-4.5) mEq/L Chloride 106 107 (98-109) mEq/L Carbon Dioxide 23 21 (19-29) mEq/L BUN 15 11 (8-26) mg/dL Creatinine 0.97 0.86 (0.72-1.25) mg/dL Glucose 84 219 H (70-99) mg/dL Calcium 9.0 8.7 (8.6-10.8) mg/dL AST 90 H (5-34) Units/L ALT 158 H (0-55) Units/L Alkaline Phosphatase 94 (38-126) Units/L Albumin 3.2 L (3.5-5.0) g/dL Calcium panel 01/22/17 01/23/17 Range/Units 14:20 05:53 Calcium 9.0 8.7 (8.6-10.8) mg/dL Albumin 3.2 L (3.5-5.0) g/dL Pituitary panel 01/22/17 01/23/17 Range/Units 14:20 05:53 Sodium 140 136 (136-145) mEq/L Potassium 3.9 4.7 H (3.5-4.5) mEq/L Chloride 106 107 (98-109) mEq/L Carbon Dioxide 23 21 (19-29) mEq/L BUN 15 11 (8-26) mg/dL Creatinine 0.97 0.86 (0.72-1.25) mg/dL Glucose 84 219 H (70-99) mg/dL Calcium 9.0 8.7 (8.6-10.8) mg/dL Adrenal panel 01/22/17 01/23/17 Range/Units 14:20 05:53 Sodium 140 136 (136-145) mEq/L Potassium 3.9 4.7 H (3.5-4.5) mEq/L Chloride 106 107 (98-109) mEq/L Carbon Dioxide 23 21 (19-29) mEq/L BUN 15 11 (8-26) mg/dL Creatinine 0.97 0.86 (0.72-1.25) mg/dL Glucose 84 219 H (70-99) mg/dL Calcium 9.0 8.7 (8.6-10.8) mg/dL Total Bilirubin 0.8 (0.2-1.2) mg/dL AST 90 H (5-34) Units/L ALT 158 H (0-55) Units/L Alkaline Phosphatase 94 (38-126) Units/L Albumin 3.2 L (3.5-5.0) g/dL - VTE Documentation of Mechanical Device: Intermittent pneumatic compression device Consult Discharge Plan - Plan Additional Instructions: Please follow-up with your primary care provider at the [facility] in the next 1-2 weeks. Please follow-up with surgery regarding your liver biopsy. Referrals: Paul Mccormick MD [Partnered Physician] - 02/03/17 10:20 am Prescriptions: Oxycodone HCl [Oxaydo] 7.5 mg PO Q4H PRN #12 tablet.orl PRN Reason: Severe Pain <Paul Mccormick - Last Filed: 01/23/17 14:57> Date of Encounter: 01/23/17 - Assessment and Plan (1) Pancreatitis Status: Chronic Qualifiers: Chronicity: chronic Pancreatitis type: unspecified pancreatitis type Qualified Code(s): K86.1 - Other chronic pancreatitis Objective Intake and Output 01/22/17 01/23/17 01/23/17 23:59 07:59 15:59 Intake Total 520 / 520 1000 / 1000 Output Total 770 / 770 1000 / 1000 Balance -250 / -250 0 / 0 Intake: IV Fluids 400 / 400 1000 / 1000 0.9 % Sodium Chloride 1,000 ML 400 / 400 1000 / 1000 @ 100 mls/hr IVC .Q10H [facility] Rx#: [id number] Oral 120 / 120 0 / 0 Output: Urine 750 / 750 1000 / 1000 Estimated Blood Loss Other: Meal Dinner Percent of Meal Consumed 80% Blood Glucose* 88 - Labs 01/23/17 05:53 01/23/17 05:53 Diabetes panel 01/22/17 01/23/17 Range/Units 14:20 05:53 Sodium 140 136 (136-145) mEq/L Potassium 3.9 4.7 H (3.5-4.5) mEq/L Chloride 106 107 (98-109) mEq/L Carbon Dioxide 23 21 (19-29) mEq/L BUN 15 11 (8-26) mg/dL Creatinine 0.97 0.86 (0.72-1.25) mg/dL Glucose 84 219 H (70-99) mg/dL Calcium 9.0 8.7 (8.6-10.8) mg/dL AST 90 H (5-34) Units/L ALT 158 H (0-55) Units/L Alkaline Phosphatase 94 (38-126) Units/L Albumin 3.2 L (3.5-5.0) g/dL Calcium panel 01/22/17 01/23/17 Range/Units 14:20 05:53 Calcium 9.0 8.7 (8.6-10.8) mg/dL Albumin 3.2 L (3.5-5.0) g/dL Pituitary panel 01/22/17 01/23/17 Range/Units 14:20 05:53 Sodium 140 136 (136-145) mEq/L Potassium 3.9 4.7 H (3.5-4.5) mEq/L Chloride 106 107 (98-109) mEq/L Carbon Dioxide 23 21 (19-29) mEq/L BUN 15 11 (8-26) mg/dL Creatinine 0.97 0.86 (0.72-1.25) mg/dL Glucose 84 219 H (70-99) mg/dL Calcium 9.0 8.7 (8.6-10.8) mg/dL Adrenal panel 01/22/17 01/23/17 Range/Units 14:20 05:53 Sodium 140 136 (136-145) mEq/L Potassium 3.9 4.7 H (3.5-4.5) mEq/L Chloride 106 107 (98-109) mEq/L Carbon Dioxide 23 21 (19-29) mEq/L BUN 15 11 (8-26) mg/dL Creatinine 0.97 0.86 (0.72-1.25) mg/dL Glucose 84 219 H (70-99) mg/dL Calcium 9.0 8.7 (8.6-10.8) mg/dL Total Bilirubin 0.8 (0.2-1.2) mg/dL AST 90 H (5-34) Units/L ALT 158 H (0-55) Units/L Alkaline Phosphatase 94 (38-126) Units/L Albumin 3.2 L (3.5-5.0) g/dL - Attending Attestation I examined this patient and my medical decision-making was reviewed with the Resident Physician. I agree with the documented findings, disposition and treatment plan as described except to the extent set forth below. The patient is seen and evaluated on morning rounds with the resident. He should be able to return to the [facility] later today. He is having much less pain than yesterday. I will be glad to see him in follow-up as an outpatient. Paul Mccormick MD FACS
[2017-01-23] MEDS ORDERED: *HR* OxyCODONE Immed Rel 5 MG TABLET PO ONE (12:53)
[2017-01-23] MEDS ORDERED: *HR* OxyCODONE ER (12 HR) 10 MG TABLET PO SCH (18:00)
== END 2017-01-23 13:14 | DRG 418 ==
LOC: 3ANU 19:22
PROVIDERS: ADMIT Hospitalist; ATTEND Internal Medicine